=== PATIENT | female | born 1945 | race Caucasian/White ===

== ENCOUNTER 2017-12-19 08:32 | Inpatient (IN) ==
[2017-12-19] MEDS ORDERED: ENOXAPARIN 100 MG/ML SYRINGE SUBCUT ONE (08:43)
[2017-12-19] MEDS ORDERED: ASPIRIN 325 MG TABLET ONE (08:44)
[2017-12-19] MEDS ORDERED: FUROSEMIDE 40 MG/4 ML VIAL ONE (08:44)
[2017-12-19] MEDS ORDERED: ENOXAPARIN 100 MG/ML SYRINGE SUBCUT STA (08:46)
[2017-12-19] MEDS ORDERED: ONDANSETRON ODT 4 MG TABLET PO STA (08:46)
[2017-12-19] MEDS ORDERED: ASPIRIN 325 MG TABLET PO STA (08:46)
[2017-12-19] MEDS ORDERED: FUROSEMIDE 100 MG/10 ML VIAL IV STA (08:46)
[2017-12-19] MEDS ORDERED: MORPHINE 4 MG/1 ML VIAL ONE (08:49)
[2017-12-19] MEDS ORDERED: ONDANSETRON 4 MG/2 ML VIAL ONE (08:49)
[2017-12-19] MEDS ORDERED: ONDANSETRON 4 MG/2 ML VIAL IV STA (08:50)
[2017-12-19] MEDS ORDERED: MORPHINE 4 MG/1 ML VIAL IV STA ×2 (08:50→08:51)
[2017-12-19 08:53] LABS: Basophils # 0.1 10*3/uL (0.0-0.2); Basophils % 0.9 % (0.0-0.8); Eosinophils # 0.3 10*3/uL (0.0-0.87); Eosinophils % 2.6 % (0.00-10.9); Hematocrit 45.8 VOL% (35.7-47.0); Hemoglobin 14.4 GM/DL (12.0-16.0); Immature Granulocytes % 0.2 %; Immature Granulocytes Absolute 0.02 #; Lymphocytes # 3.7 10*3/uL (1.4-4.0); Lymphocytes % 36.3 % (21.3-54.2); Mean Corpuscular HGB Conc 31.4 GM/DL (32-36); Mean Corpuscular Hemoglobin 31 PG (27-34); Mean Corpuscular Volume 98.1 FL (87-102); Mean Platelet Volume 11.9 FL (9.6-12.0); Monocytes # 0.7 10*3/uL (0.11-0.8); Monocytes % 6.6 % (1.7-12.7); Neutrophils # 5.5 10*3/uL (1.4-7.4); Neutrophils % 53.4 % (38.7-73.9); Platelet Count 250 T/CUMM (130-400); Red Blood Count 4.67 MC/CUMM (3.8-5.5); Red Cell Distribution Width 13.3 % (9.3-17.3); White Blood Count 10.3 T/CUMM (4-12)
[2017-12-19 08:59] LABS: PT Patient Result 10.2 SECS; Partial Thromboplastin Time 22.6 SECS (0-40)
[2017-12-19 09:07] LABS: ABG Base Excess -5.6 MMOL/L (-2.5-2.5); ABG HCO3 26.2 MMOL/L (20-26); ABG Oxygen Saturation 97.8 % (95-100); ABG PO2 144.9 MM HG (80-95); ABG TCO2 28.8 MMOL/L (23-27)
[2017-12-19 09:09] LABS: ABG PCO2 85.3 MM HG (35-48); ABG PH 7.105 (7.35-7.45)
[2017-12-19 09:23] LABS: Albumin 3.3 G/DL (3.4-5.0); Bilirubin,Total 0.5 MG/DL (0.2-1.0); Calcium 9.3 MG/DL (8.5-10.1); Osmolality,Calculated 283.7 MOS/KG (273-304); Potassium 5.3 MMOL/L (3.5-5.1); Total Protein 8.4 G/DL (6.4-8.3); Troponin I Only 0.689 NG/ML (0.00-0.045)
[2017-12-19 09:30] LABS: Apearance,Urine CLEAR (Clear); Bilirubin,Urine Negative (Negative); Blood, Urine Moderate mg/dL (Negative); Glucose,Urine (UA) Negative (Negative); Ketones,Urine Negative (Negative); Mucus,Urine Occasional /LPF (Occasional); Nitrite,Urine Negative (Negative); Protein,Urine Negative; RBC,Urine 3 /HPF (0-4); Urine Color Yellow (Yellow); Urine Specific Gravity 1.004 (1.001-1.035); Urine Urobilinogen < 2.0 EU/DL (0.2-1.0); WBC,Urine 1 /HPF (0-6)
[2017-12-19] MEDS ORDERED: PROPOFOL 1,000 MG/100 ML BOTTLE IV ONE (09:36)
[2017-12-19] MEDS ORDERED: ETOMIDATE 20 MG/10 ML VIAL IV ONE (09:44)
[2017-12-19] MEDS ORDERED: ROCURONIUM 100 MG/10 ML VIAL IV STA (09:48)
[2017-12-19] MEDS ORDERED: ROCURONIUM 100 MG/10 ML VIAL IV ONE (09:49)
[2017-12-19] MEDS ORDERED: SODIUM CHLORIDE 0.9% 1,000 ML IV STA (09:50)
[2017-12-19] MEDS: PROPOFOL 1,000 MG/100 ML BOTTLE IV SCH ×2 (09:52→21:56)
[2017-12-19] MEDS ORDERED: SODIUM CHLORIDE 0.9% 250 ML IV STA (10:01)
[2017-12-19] MEDS ORDERED: POTASSIUM CHLORIDE RIDER 10 MEQ in PREMIX 1 EACH IV PRN (10:41)
[2017-12-19] MEDS ORDERED: MAGNESIUM SULF RIDER 2 GM in PREMIX 1 EACH IV PRN (10:41)
[2017-12-19] MEDS ORDERED: PHENYLEPHRINE DRIP 40 MG/250 ML PREMIX IV PRN (10:42)
[2017-12-19] MEDS ORDERED: PHENYLEPHRINE DRIP 40 MG/250 ML PREMIX IV ONE (10:46)
[2017-12-19] MEDS ORDERED: MIDAZOLAM 2 MG/2 ML VIAL ONE (11:28)
[2017-12-19] MEDS ORDERED: LIDOCAINE 1% 20 ML VIAL ONE (12:07)
[2017-12-19] MEDS ORDERED: ACETAMINOPHEN 325 MG TABLET PO PRN (12:38)
[2017-12-19] MEDS ORDERED: ONDANSETRON 4 MG/2 ML VIAL IV PRN (12:38)
[2017-12-19] MEDS: SODIUM CHLORIDE 0.45% 1,000 ML IV SCH (13:39)
[2017-12-19] MEDS: SODIUM CHLORIDE 0.9% 1,000 ML IV SCH (13:42)
[2017-12-19 15:53] LABS: ABG Base Excess -0.9 MMOL/L (-2.5-2.5); ABG HCO3 21.1 MMOL/L (20-26); ABG PCO2 28.4 MM HG (35-48); ABG PH 7.488 (7.35-7.45); ABG PO2 393.7 MM HG (80-95); ABG TCO2 21.9 MMOL/L (23-27)
[2017-12-19 15:54] LABS: ABG Oxygen Saturation 99.8 % (95-100)
[2017-12-19 17:33] LABS: ABG Base Excess 1.7 MMOL/L (-2.5-2.5); ABG Oxygen Saturation 98.8 % (95-100); ABG PCO2 35.1 MM HG (35-48); ABG PH 7.463 (7.35-7.45); ABG TCO2 21.9 MMOL/L (23-27)
[2017-12-19] MEDS: DOCUSATE SODIUM 100 MG CAPSULE PO SCH (21:35)
[2017-12-20 03:12] LABS: ABG HCO3 27.1 MMOL/L (20-26); ABG Oxygen Saturation 99.5 % (95-100); ABG PCO2 35.4 MM HG (35-48); ABG PH 7.479 (7.35-7.45); ABG TCO2 23.2 MMOL/L (23-27); Allen Test Positive; Pt O2 Delivery Device Ventilator
[2017-12-20 05:21] LABS: Basophils % 0.1 % (0.0-0.8); Eosinophils % 0.1 % (0.00-10.9); Hematocrit 34.2 VOL% (35.7-47.0); Hemoglobin 11.4 GM/DL (12.0-16.0); Immature Granulocytes % 0.5 %; Immature Granulocytes Absolute 0.05 #; Lymphocytes # 1.2 10*3/uL (1.4-4.0); Lymphocytes % 11.5 % (21.3-54.2); Mean Corpuscular HGB Conc 33.3 GM/DL (32-36); Mean Corpuscular Hemoglobin 31 PG (27-34); Mean Corpuscular Volume 92.2 FL (87-102); Mean Platelet Volume 11.1 FL (9.6-12.0); Monocytes # 0.8 10*3/uL (0.11-0.8); Monocytes % 7.4 % (1.7-12.7); Neutrophils # 8.5 10*3/uL (1.4-7.4); Neutrophils % 80.4 % (38.7-73.9); Platelet Count 184 T/CUMM (130-400); Red Blood Count 3.71 MC/CUMM (3.8-5.5); Red Cell Distribution Width 13.2 % (9.3-17.3); White Blood Count 10.6 T/CUMM (4-12)
[2017-12-20 05:58] LABS: Calcium 8.3 MG/DL (8.5-10.1); Osmolality,Calculated 282.4 MOS/KG (273-304); Potassium 3.2 MMOL/L (3.5-5.1)
[2017-12-20] MEDS: ENOXAPARIN 40 MG/0.4 ML SYRINGE SUBCUT SCH (06:26)
[2017-12-20] MEDS: ASPIRIN EC 81 MG TABLET PO SCH (10:47)
[2017-12-20] MEDS: LOSARTAN 25 MG TABLET PO SCH (10:47)
[2017-12-20] MEDS: CARVEDILOL 3.125 MG TABLET PO SCH ×2 (10:48→21:20)
[2017-12-20 10:51] LABS: ABG HCO3 27.2 MMOL/L (20-26); ABG Oxygen Saturation 97.6 % (95-100); ABG PCO2 40.2 MM HG (35-48); ABG PH 7.448 (7.35-7.45); ABG PO2 104.2 MM HG (80-95); ABG TCO2 28.4 MMOL/L (23-27); Pt O2 Delivery Device Ventilator
[2017-12-20] MEDS: DOCUSATE SODIUM 100 MG CAPSULE PO SCH ×2 (10:52→21:20)
[2017-12-20] MEDS: PANTOPRAZOLE 40 MG TABLET PO SCH (10:53)
[2017-12-20] MEDS: SODIUM CHLORIDE 0.45% 1,000 ML IV SCH ×2 (11:51→17:08)
[2017-12-20] MEDS: PROPOFOL 1,000 MG/100 ML BOTTLE IV SCH (11:53)
[2017-12-20 13:00] LABS: ABG Base Excess 2.9 MMOL/L (-2.5-2.5); ABG Oxygen Saturation 97.9 % (95-100); ABG PCO2 44.2 MM HG (35-48); ABG PH 7.409 (7.35-7.45); ABG PO2 96.4 MM HG (80-95); ABG TCO2 25.1 MMOL/L (23-27)
[2017-12-20] MEDS: POTASSIUM CHLORIDE 20 MEQ/15 ML UDCUP PER TUBE PRN ×2 (13:02→16:14)
[2017-12-20] MEDS: FUROSEMIDE 40 MG/4 ML VIAL IV SCH (16:13)
[2017-12-20] MEDS: POTASSIUM CHLORIDE 20 MEQ TABLET PO PRN (18:29)
[2017-12-21] MEDS: POTASSIUM CHLORIDE 20 MEQ TABLET PO PRN ×2 (00:49→03:05)
[2017-12-21 04:02] LABS: Allen Test Positive
[2017-12-21 04:03] LABS: ABG Base Excess 3.9 MMOL/L (-2.5-2.5); ABG HCO3 28.6 MMOL/L (20-26); ABG Oxygen Saturation 97.8 % (95-100); ABG PCO2 43.8 MM HG (35-48); ABG PH 7.433 (7.35-7.45); ABG PO2 106.5 MM HG (80-95)
[2017-12-21] MEDS: ENOXAPARIN 40 MG/0.4 ML SYRINGE SUBCUT SCH (05:47)
[2017-12-21 06:02] LABS: Basophils % 0.3 % (0.0-0.8); Eosinophils # 0.2 10*3/uL (0.0-0.87); Eosinophils % 2.2 % (0.00-10.9); Hematocrit 32.8 VOL% (35.7-47.0); Hemoglobin 10.6 GM/DL (12.0-16.0); Immature Granulocytes % 0.3 %; Immature Granulocytes Absolute 0.02 #; Lymphocytes # 1.3 10*3/uL (1.4-4.0); Mean Corpuscular HGB Conc 32.3 GM/DL (32-36); Mean Corpuscular Hemoglobin 31 PG (27-34); Mean Corpuscular Volume 94.3 FL (87-102); Monocytes # 0.7 10*3/uL (0.11-0.8); Monocytes % 9.8 % (1.7-12.7); Neutrophils # 4.7 10*3/uL (1.4-7.4); Neutrophils % 68.4 % (38.7-73.9); Platelet Count 168 T/CUMM (130-400); Red Blood Count 3.48 MC/CUMM (3.8-5.5); Red Cell Distribution Width 13.2 % (9.3-17.3)
[2017-12-21 06:20] LABS: White Blood Count 6.9 T/CUMM (4-12)
[2017-12-21 06:32] LABS: Calcium 8.2 MG/DL (8.5-10.1); Osmolality,Calculated 283.1 MOS/KG (273-304)
[2017-12-21] MEDS: CARVEDILOL 3.125 MG TABLET PO SCH (08:18)
[2017-12-21] MEDS: ASPIRIN EC 81 MG TABLET PO SCH (08:18)
[2017-12-21] MEDS: PANTOPRAZOLE 40 MG TABLET PO SCH (08:18)
[2017-12-21] MEDS: DOCUSATE SODIUM 100 MG CAPSULE PO SCH ×2 (08:18→20:58)
[2017-12-21] MEDS: FUROSEMIDE 40 MG/4 ML VIAL IV SCH ×2 (08:19→16:25)
[2017-12-21] MEDS: LOSARTAN 25 MG TABLET PO SCH (08:19)
[2017-12-21 11:28] LABS: Troponin I Only 0.991 NG/ML (0.00-0.045)
[2017-12-21] MEDS: SODIUM CHLORIDE 0.9% 1,000 ML IV SCH (13:10)
[2017-12-21] MEDS: CARVEDILOL 6.25 MG TABLET PO SCH (20:58)
[2017-12-21] MEDS ORDERED: AMITRIPTYLINE 10 MG TABLET PO SCH (21:00)
[2017-12-21] MEDS ORDERED: diphenhydrAMINE CAP 25 MG CAPSULE PO SCH (21:00)
[2017-12-21] MEDS ORDERED: ATORVASTATIN 10 MG TABLET PO SCH (21:00)
[2017-12-22 04:07] LABS: ABG Base Excess 6.7 MMOL/L (-2.5-2.5); ABG HCO3 30.4 MMOL/L (20-26); ABG Oxygen Saturation 94.6 % (95-100); ABG PCO2 40.1 MM HG (35-48); ABG PH 7.498 (7.35-7.45); ABG PO2 70.5 MM HG (80-95); ABG TCO2 31.7 MMOL/L (23-27); Allen Test Positive; Pt O2 Delivery Device Room Air
[2017-12-22 05:35] LABS: Basophils % 0.3 % (0.0-0.8); Eosinophils # 0.2 10*3/uL (0.0-0.87); Eosinophils % 3.4 % (0.00-10.9); Hematocrit 34.5 VOL% (35.7-47.0); Hemoglobin 10.9 GM/DL (12.0-16.0); Immature Granulocytes % 0.3 %; Immature Granulocytes Absolute 0.02 #; Lymphocytes # 1.5 10*3/uL (1.4-4.0); Lymphocytes % 23.3 % (21.3-54.2); Mean Corpuscular HGB Conc 31.6 GM/DL (32-36); Mean Corpuscular Hemoglobin 30 PG (27-34); Mean Corpuscular Volume 95.6 FL (87-102); Mean Platelet Volume 10.9 FL (9.6-12.0); Monocytes # 0.6 10*3/uL (0.11-0.8); Monocytes % 9.4 % (1.7-12.7); Neutrophils # 4.1 10*3/uL (1.4-7.4); Neutrophils % 63.3 % (38.7-73.9); Platelet Count 183 T/CUMM (130-400); Red Blood Count 3.61 MC/CUMM (3.8-5.5); Red Cell Distribution Width 13.1 % (9.3-17.3); White Blood Count 6.5 T/CUMM (4-12)
[2017-12-22] MEDS: ENOXAPARIN 40 MG/0.4 ML SYRINGE SUBCUT SCH ×2 (06:00→06:26)
[2017-12-22 06:11] LABS: Calcium 8.2 MG/DL (8.5-10.1); Osmolality,Calculated 285.3 MOS/KG (273-304); Potassium 3.6 MMOL/L (3.5-5.1)
[2017-12-22] MEDS: DOCUSATE SODIUM 100 MG CAPSULE PO SCH ×2 (09:04→10:16)
[2017-12-22] MEDS: ASPIRIN EC 81 MG TABLET PO SCH (09:04)
[2017-12-22] MEDS: CARVEDILOL 6.25 MG TABLET PO SCH (09:04)
[2017-12-22] MEDS: PANTOPRAZOLE 40 MG TABLET PO SCH (09:04)
[2017-12-22] MEDS: LOSARTAN 25 MG TABLET PO SCH (09:04)
[2017-12-22] MEDS: FUROSEMIDE 40 MG/4 ML VIAL IV SCH ×2 (09:05→10:15)
[2017-12-22 12:06] VITALS: BP 109/58
== END 2017-12-22 13:50 | disposition home or self-care (01) | DRG 208 ==
LOC: EDUNIT# → EDBD → N.ED 08:32 → N.EDINP 10:09 → N.CC 10:54 → N.TELEN 12-21 14:32
PROVIDERS: ADMIT Family Medicine; ATTEND Family Medicine
PROC: CLCCHCL (ICD-10-PCS; 2017-12-19 12:00)